=== PATIENT | female | born 1990 | race Caucasian/White ===

== ENCOUNTER 2017-09-18 14:44 | Emergency (ER) | payer SELFPAY | END 2017-09-18 18:40 | disposition left against medical advice (07) | LOC: FTE 14:44 | DX: Z53.21 Procedure and treatment not carried out due to patient leaving prior to being seen by health care provider (principal) ==

== ENCOUNTER 2019-02-05 12:15 | Emergency (ER) | payer OTHER ==
[2019-02-05] MEDS: ACETAMINOPHEN 325 MG TAB PO (13:34)
[2019-02-05 13:52] LABS: ADD MAN DIFF? NO
[2019-02-05 14:15] LABS: WHITE BLOOD COUNT 8.5 10^3/ul (4.8-10.8)
[2019-02-05 14:15] LABS: BASOPHILS % 0.4 % (0.0-2.0); EOSINOPHILS # 0.1 10^3/ul (0.0-0.5); EOSINOPHILS % 0.7 % (0.0-7.0); HEMATOCRIT 40.7 % (37.0-47.0); HEMOGLOBIN 13.4 g/dl (12.0-16.0); LYMPHOCYTES % 23.3 % (15.0-51.0); MEAN CORPUSCULAR HEMOGLOBIN 28.2 pg (29.0-33.0); MEAN CORPUSCULAR HGB CONC 32.9 g/dl (32.0-37.0); MEAN CORPUSCULAR VOLUME 85.7 fl (82.0-101.0); MEAN PLATELET VOLUME 10.7 fl (7.4-10.4); MONOCYTE # 0.6 10^3/ul (0.3-0.9); MONOCYTES % 7.2 % (0.0-11.0); NEUTROPHIL # 5.8 10^3/ul (1.6-7.5); NEUTROPHILS % 68.2 % (39.0-77.0); PLATELET COUNT 254 10^3/UL (140-415); RED BLOOD COUNT 4.75 10^6/ul (4.20-5.40); RED CELL DISTRIBUTION WIDTH 13.1 % (11.5-14.5)
[2019-02-05 14:22] LABS: ADD UMIC YES; UR ASCORBIC ACID NEGATIVE (NEGATIVE); UR BACTERIA FEW /HPF (NONE SEEN); UR BILIRUBIN (Dip) NEGATIVE (NEGATIVE); UR BLOOD (Dip) 1+ mg/dL (NEGATIVE); UR CLARITY CLEAR (CLEAR); UR COLOR STRAW (YELLOW); UR GLUCOSE (Dip) NEGATIVE (NEGATIVE); UR KETONES (Dip) NEGATIVE (NEGATIVE); UR LEUKOCYTE ESTERASE (Dip) NEGATIVE Leu/ul (NEGATIVE); UR NITRITE (Dip) NEGATIVE (NEGATIVE); UR RBC 0 /HPF (0-5); UR SPECIFIC GRAVITY (Dip) 1.001 (1.003-1.030); UR TOTAL PROTEIN (Dip) NEGATIVE (NEGATIVE); UR UROBILINOGEN (Dip) NEGATIVE (NEGATIVE); UR WBC 0 /HPF (0-5)
== END 2019-02-05 15:47 | disposition home or self-care (01) ==
LOC: FTE 12:15
DX: O26.891 Other specified pregnancy related conditions, first trimester (principal); O20.0 Threatened abortion; R82.71 Bacteriuria; Z3A.01 Less than 8 weeks gestation of pregnancy
CPT/HCPCS: 36415; 76801; 76817; 81001; 84702; 85025; 86900; 86901; 99284-25